=== PATIENT | male | born 1935 | race Caucasian/White ===

== ENCOUNTER 2017-08-31 17:50 | Observation (INO) ==
--- NOTE | 2017-08-31 17:57 | Emergency Department Note ---
Disposition Clinical Impression: Chest pain, Peripheral edema, Elevated d-dimer Disposition: Admitted As Inpatient Condition: Good Reasons to Return/Additional Instructions: Your blood pressure was little elevated today so please follow up through primary care provider for recheck Chest Pain HPI - General Chief Complaint: ED Chest Pain Stated Complaint: chest pain, fall at home Time Seen by Provider: 08/31/17 17:50 Source: patient Mode of arrival: private vehicle Limitations: no limitations Vital Signs Reviewed: Yes Nursing Notes Reviewed: Yes - History of Present Illness HPI Narrative: Patient complains of left-sided chest pain at the left sternal border for the past couple of months off and on. He drove home from [place] today and his legs are swollen so came here to the emergency department. He denies any shortness of breath nausea vomiting belly discomfort diarrhea rashes or other complaints present timeHe has some chronic leg weakness which requires him to use his walker and he fell today - without injury. Pt complaint: chest pain Onset (ago): month(s) (2 months off and on) Duration: intermittent Onset: during rest Pain Location: left chest Severity: mild Quality: sharp Pain Radiation: none Improves with: nothing Worsens with: nothing Associated symptoms: Reports: leg swelling. Denies: nausea, vomiting, diaphoresis, dyspnea, sense of impending doom, syncope, palpitations, fever, cough - Related Data Home Medications Medication Instructions Recorded Confirmed Amiodarone [Cordarone] 200 mg PO DAILY 09/15/15 09/15/15 Aspirin [Adult Low Dose Aspirin EC] 81 mg PO DAILY 09/15/15 Metoprolol Tartrate [Lopressor] 50 mg PO DAILY 09/15/15 09/15/15 NIFEdipine [Nifedipine ER] 30 mg PO DAILY 09/15/15 09/15/15 Allergies Allergy/AdvReac Type Severity Reaction Status Date / Time No Known Allergies Allergy Verified 09/15/15 22:25 All systems ED: reviewed and negative except as stated. Review of Systems: As Per HPI Constitutional: Denies: fever, chills, weakness, weight change Eyes: Denies: eye pain, eye discharge, vision change ENT ED: Denies: ear pain, throat pain, dental pain, hearing loss, epistaxis, congestion, dysphagia Cardiovascular: Reports: as per HPI, chest pain. Denies: palpitations, dyspnea on exertion, edema, syncope Respiratory: Denies: cough, dyspnea, wheezes, hemoptysis, stridor Gastrointestinal: Denies: abdominal pain, nausea, vomiting, diarrhea, constipation, hematemesis, melena, hematochezia Genitourinary: Denies: urgency, dysuria, frequency, hematuria Musculoskeletal: Reports: as per HPI, other (bilateral leg edema). Denies: back pain, neck pain, arthralgia, myalgia Integumentary: Denies: rash, abrasion, lesions Neurological: Denies: headache, weakness, numbness, paresthesias, confusion, abnormal gait, vertigo Psychiatric: Denies: anxiety, depression, suicidal thoughts, homicidal thoughts , auditory hallucinations, visual hallucinations Endocrine: Denies: fatigue Hematological/Lymphatic: Denies: easy bleeding, easy bruising Allergic/Immunologic: Denies: facial swelling, urticaria Chest Pain PMH - Past Medical History Medical history: Reports: hypertension Psychiatric history: Reports: no psych history - Social History Smoking Status: Never smoker Alcohol use: Reports: none Drug use: Reports: none Physical Exam - General Limitations: no limitations General appearance: alert, in no apparent distress - Head Head exam: atraumatic, normocephalic, normal inspection - Eye Eye exam: Present: normal appearance, PERRL, EOMI - ENT ENT exam: normal exam, normal oropharynx, mucous membranes moist - Neck Neck exam: Present: normal inspection, full ROM, trachea midline - Respiratory Respiratory exam: Present: normal lung sounds bilaterally - Cardiovascular Cardiovascular exam: Present: regular rate, normal rhythm, normal heart sounds - Abdominal Exam Abdominal exam: Present: soft, Non-Tender. Absent: tenderness, distention, guarding, rebound, rigidity - Extremities Exam Extremities exam: Present: normal inspection - Back Exam Back exam: Present: normal inspection - Neurological Exam Neurological exam: Present: alert, oriented X3, reflexes normal - Psychiatric Psychiatric exam: Present: normal affect, normal mood - Skin Skin exam: Present: warm, dry, intact Chest Pain - MDM Narrative Medical decision making narrative: Case discussed with Dr. Shahid who accepts admission. - Lab Data Lab results reviewed: Yes I reviewed the patient's lab results. - Radiology Data Radiology results reviewed: Yes I reviewed the patient's radiology results. - EKG Data EKG attestation: Yes I reviewed and interpreted this EKG. EKG results narrative: EKG shows a supraventricular rhythm probable sinus with a rate of 77 bpm QRS duration 92 ms QT QTC intervals are 431 and 463 ms respectively R axis of 35 degrees EKG #2 shows sinus rhythm with short DC interval rate is 76 bpm. 113 ms [place] 92 ms QT intervals 418 ms QTC 440 8R axis of 135 degrees no acute ischemic changes noted. Relativly low voltage is noted.
[2017-08-31 18:38] LABS: INR 1.1
[2017-08-31 18:41] LABS: Activated Partial Thrombo Time 29.2 Seconds (26.0-36.0)
[2017-08-31 18:43] LABS: Basophils # 0.1 K/mcL (0.0-0.2); Basophils % 0.7 %; Eosinophils # 0.2 K/mcL (0.0-0.6); Eosinophils % 2.1 %; Hemoglobin 13.6 g/dL (12.9-16.9); Immature Granulocytes % 0.4 % (0-4); Lymphocytes # 0.7 K/mcL (0.6-4.6); Lymphocytes % 9.4 %; Mean Corpuscular HGB Conc 33.2 g/dL (31.6-35.5); Mean Corpuscular Hemoglobin 31.2 pg (28.0-33.3); Mean Platelet Volume 10.3 fL (9.4-12.4); Monocytes % 14.3 %; Neutrophils # 5.2 K/mcL (1.6-8.9); Platelet Count 210 K/mcL (140-400); Red Blood Count 4.36 M/mcL (4.19-5.50); Red Cell Distribution Width 13.6 % (11.5-14.5); Segmented Neutrophils % 73.1 %
[2017-08-31 18:52] LABS: Alanine Aminotransferase 13 Units/L (7-52); Albumin 3.2 g/dL (3.5-5.7); Albumin/Globulin Ratio 1.2 (1.1-2.2); Alkaline Phosphatase 69 Units/L (34-104); Aspartate Amino Transferase 19 Units/L (13-39); BUN/Creatinine Ratio 9 (6-26); Bilirubin,Total 0.7 mg/dL (0.3-1.0); Blood Urea Nitrogen 11 mg/dL (8-23); Calcium 8.3 mg/dL (8.6-10.3); Carbon Dioxide 29 mEq/L (23-29); Chloride 107 mEq/L (98-107); Globulin 2.6 g/dL (2.4-3.5); Glucose 100 mg/dL (70-105); Osmolality,Calculated 295 (280-300); Potassium 3.8 mEq/L (3.5-5.1); Sodium 143 mEq/L (136-145); Total Protein 5.8 g/dL (6.4-8.9); eGFR For African Americans > 60 (> 60); eGFR For Non-African Americans 54 (> 60)
[2017-08-31] MEDS ORDERED: Isovue-370 500 ML INFUS..BTL IV ONE ×2 (18:56→22:21)
[2017-08-31 19:01] LABS: Troponin I 0.04 ng/mL (< 0.04)
[2017-08-31] MEDS ORDERED: *HR* Enoxaparin 100 MG/ML SYRINGE SQ ONE (22:21)
[2017-08-31] MEDS ORDERED: Naloxone 0.4 MG/ML INJ IVP PRN (22:21)
[2017-08-31] MEDS ORDERED: 0.9 % Sodium Chloride 1,000 ML IVC SCH (22:21)
[2017-09-01 05:58] LABS: Basophils % 0.6 %; Eosinophils # 0.1 K/mcL (0.0-0.6); Eosinophils % 1.3 %; Hematocrit 40.5 % (37.5-50.1); Hemoglobin 13.1 g/dL (12.9-16.9); Immature Granulocytes % 0.3 % (0-4); Lymphocytes % 15.1 %; Mean Corpuscular HGB Conc 32.3 g/dL (31.6-35.5); Mean Corpuscular Hemoglobin 30.6 pg (28.0-33.3); Mean Corpuscular Volume 94.6 fL (83.0-100.0); Mean Platelet Volume 10.2 fL (9.4-12.4); Monocytes # 1.1 K/mcL (0.0-1.3); Monocytes % 16.2 %; Neutrophils # 4.6 K/mcL (1.6-8.9); Platelet Count 193 K/mcL (140-400); Red Blood Count 4.28 M/mcL (4.19-5.50); Red Cell Distribution Width 13.9 % (11.5-14.5); Segmented Neutrophils % 66.5 %
[2017-09-01] MEDS: *HR* Amiodarone 200 MG TABLET PO SCH (08:45)
[2017-09-01] MEDS ORDERED: NIFEdipine XL (24 HR) 30 MG TAB.ER.24 PO SCH (09:00)
[2017-09-01] MEDS ORDERED: *HR* Enoxaparin 100 MG/ML SYRINGE SQ ONE (09:02)
--- NOTE | 2017-09-01 16:17 | Internal Med History&Physical ---
Date of Encounter: 09/01/17 Time of Encounter: 15:40 Assessment and Plan (1) Near syncope Current visit: Yes Status: Acute Etiology not determined. Will order echocardiogram and bilateral leg venous Dopplers. Continue telemetry monitoring (2) Arteriosclerotic heart disease (ASHD) Current visit: Yes Status: Acute Serial troponin show minimal elevation 0.04 likely due to demand ischemia. Will order echocardiogram to further evaluate. (3) CKD (chronic kidney disease) stage 3, GFR 30-59 ml/min Current visit: Yes Status: Acute Will monitor renal indices. (4) Peripheral edema Current visit: Yes Status: Acute Will discontinue nifedipine and order echocardiogram. (5) Elevated d-dimer Current visit: Yes Status: Acute Will do venous ultrasound later today. Internal Medicine - H&P: HPI Chief complaint: Near syncope, weakness Admitted From: Emergency Dept Plans for Post Hospital Care: Home History of present illness: Mr. Cuevas is a 82 year old male who came to the emergency room after he experienced dizziness and a fall with near syncope shortly after arriving home from a trip to [facility]. He reports he had stopped 3-4 times during the trip for breaks. There was minimal chest pain or dyspnea associated. He was brought to emergency room and evaluated and found to have azotemia and bilateral leg edema. D-dimer was elevated but CTA of chest showed no evidence of PE. He was admitted to [facility] floor for ongoing care needs. He has history of hypertension and known ASHD status post 5 vessel CABG 2001. He did not have an PA prior to CABG surgery. He gets chest pain somewhat predictably on heavy exertion but this has not changed in clinical presentation for several weeks to months. He has had atrial fibrillation in the past but is on Cordarone and metoprolol and has not had recurrence for several years. He denies history of DVT or pulmonary embolus. He has not been diagnosed with heart failure. Past Med Surg Social Fam HX - Past Medical History Medical history: hypertension Psychiatric history: no psych history - Social History Smoking Status: Never smoker Smokeless Tobacco Status: No Alcohol use: none Drug use: none Internal Medicine - H&P: Meds Amiodarone [Cordarone] 200 mg PO DAILY 09/15/15 [History] Aspirin [Adult Low Dose Aspirin EC] 81 mg PO DAILY 09/15/15 [History] Metoprolol Tartrate [Lopressor] 50 mg PO DAILY 09/15/15 [History] NIFEdipine [Nifedipine ER] 30 mg PO DAILY 09/15/15 [History] 3 Allergy/AdvReac Type Severity Reaction Status Date / Time No Known Allergies Allergy Verified 09/15/15 22:25 All Systems PM: A 10-system review of systems was performed and is negative for pertinent findings except as documented above in the HPI. Review of systems: Gen.: His weight has been stable the past few months Cardiovascular: As per history of present illness Respiratory: He smoked very briefly as a teenager. He denies chronic lung disease. GI: Denies disorders of his liver gallbladder or exocrine pancreas : He has had urinary frequency with BPH symptoms in the past but is no longer taking medication. He was unaware he had CKD Neurologic: He denies large distribution strokes or seizures. Endocrine: He denies diabetes thyroid disease or hyperlipidemia Hematology/oncology: Denies blood disorders cancers or anemia Psychiatric: He had depression after his 's approximately 5 years ago. He denies anxiety other mental health issues. [place] skeletal: He denies arthritis gout or other bone joint or muscle disorders. - Constitutional Vitals: Temp Pulse Resp BP Pulse Ox 98.7 F 60 20 117/76 91 09/01/17 13:31 09/01/17 13:31 09/01/17 13:31 09/01/17 13:31 09/01/17 13:31 Exam: Gen.: He is a well-developed well-nourished male who appears in no acute distress at present time HEENT: Head is atraumatic and normo-cephalic. Eyes: EOMI. There is no scleral icterus. Mouth: Mucosa is moist. Neck: Supple and nontender. There is no thyromegaly or adenopathy noted. Heart: Regular without murmurs gallops or ectopics Lungs: No wheezes or crackles are heard. Abdomen: Soft and nontender. No masses or guarding are noted. Extremities: He has 1-2+ edema of the dorsum of the feet and anterior shins bilaterally. There is no edema in the dependent thighs or lower back. Dorsalis pedis and posterior tibial pulses are nonpalpable. Neurologic: Mental status: He is talkative and a good historian. Cranial nerves : Smile is symmetric. Forehead wrinkles bilaterally. Tongue protrudes midline. EOMI. Motor: There is no pronator drift. Cerebellar: Finger to nose is intact bilaterally. Skin: Warm and dry Internal Med - H&P Results - Labs CBC & Chem 7: 09/01/17 05:33 08/31/17 18:17 Labs: Short CBC 09/01/17 Range/Units 05:33 WBC 6.9 (4.3-11.1) K/mcL Hgb 13.1 (12.9-16.9) g/dL Hct 40.5 (37.5-50.1) % Plt Count 193 (140-400) K/mcL Neutrophils # 4.6 (1.6-8.9) K/mcL Cardiac Enzymes 09/01/17 09/01/17 Range/Units 05:33 10:47 Troponin I 0.04 H* 0.04 H* (< 0.04) ng/mL
[2017-09-02] MEDS: *HR* Amiodarone 200 MG TABLET PO SCH (08:28)
[2017-09-02] MEDS ORDERED: Isosorbide MONOnitrate (24 HR) 30 MG TAB.ER.24H PO SCH (09:00)
[2017-09-02 14:56] VITALS: BP 125/79
--- NOTE | 2017-09-02 17:39 | Discharge Summary ---
Orders not resulted at time of discharge: Pending orders 09/01/17 16:31 EV echocardiogram Routine Date of Encounter: 09/02/17 Time of Encounter: 17:30 - Discharge Diagnosis (1) Near syncope Priority: Primary Status: Resolved (2) Arteriosclerotic heart disease (ASHD) Priority: Secondary Status: Chronic (3) CKD (chronic kidney disease) stage 3, GFR 30-59 ml/min Priority: Secondary Status: Chronic (4) Peripheral edema Priority: Secondary Status: Acute (5) Elevated d-dimer Priority: Secondary Status: Acute Hospital course: Mr. Cuevas is a 82 year old male who came to the emergency room after he experienced dizziness and a fall with near syncope shortly after arriving home from a trip to [facility]. He reports he had stopped 3-4 times during the trip for breaks. There was minimal chest pain or dyspnea associated. He was brought to emergency room and evaluated and found to have azotemia and bilateral leg edema. D-dimer was elevated but CTA of chest showed no evidence of PE. He was admitted to [facility] for ongoing care needs. Initial orders were written by the emergency room physician. I saw him on September 01 and performed a history and physical. He had no further syncopal or near syncopal episodes. Bilateral leg venous ultrasound was done to further evaluate the elevated d-dimer. There was no evidence of DVT seen on preliminary report by the wound care technician. An echocardiogram was done to further evaluate the peripheral edema and elevated BNP peptide. Final report is pending at time of discharge. Assistant Manager Of Operations reported estimated LVEF of 60% and no significant valvular abnormalities were obvious. His PCP and /or multineedle shirrer can follow-up. He will remain off nifedipine to lessen edema. I started him on bumetanide every other day. Patient was unaware he had chronic kidney disease stage III. His PCP can discuss this further with him. On September 02 he felt improved and wished to be discharged home. He will follow with his PCP within 1 week. - Time Spent with Patient Total time spent providing and/or coordinating discharge services: - Discharge Medications Prescriptions: Bumetanide 0.5 mg PO Q48H #15 tablet Home Medications: Amiodarone [Cordarone] 200 mg PO DAILY 09/15/15 [History] Aspirin [Adult Low Dose Aspirin EC] 81 mg PO DAILY 09/15/15 [History] Metoprolol Tartrate [Lopressor] 50 mg PO DAILY 09/15/15 [History] Bumetanide 0.5 mg PO Q48H #15 tablet 09/02/17 [Rx] Allergies/Adverse Reactions: 3 Allergy/AdvReac Type Severity Reaction Status Date / Time No Known Allergies Allergy Verified 09/15/15 22:25 Date of admission: 08/31/17 22:14 Primary care physician: Antonio Pop, - Constitutional Vitals: Temp Pulse Resp BP Pulse Ox 98.9 F 54 24 125/79 93 09/02/17 14:55 09/02/17 14:55 09/02/17 14:55 09/02/17 14:55 09/02/17 14:55 - Patient Status Disposition: Home, Self-Care Condition: Good Functional capacity at discharge: independent ambulation Overall status at discharge: patient is progressing back to baseline - Discharge Instructions Follow Up With: Antonio Pop DO [Primary Care Provider] - 1 week - Diet and Activity Activity: resume usual activities as tolerated Diet: advance to your usual diet
== END 2017-09-02 18:45 | disposition home or self-care (01) ==
LOC: INPPIK 17:50 → EMEROOPIK 17:50 → INPPIK 22:20
PROVIDERS: ADMIT Internal Medicine; ATTEND Internal Medicine